=== PATIENT | male | born 1985 | race Caucasian/White ===

== ENCOUNTER 2016-10-27 18:31 | Emergency (ER) | payer BC ==
[~2016-10-27] VITALS: Ht 177.8 cm; Wt 126.8 kg
[2016-10-27 19:11] VITALS: TEMP 36.9; Ht 177.8 cm; Wt 126.8 kg
[2016-10-27] MEDS ORDERED: SEPTRA DS HOME PACK 1 EA VIAL PO ONE (19:30)
[2016-10-27] MEDS ORDERED: SULFAMETHOXAZOLE/TRIMETHOPRIM DS 800/160MG TAB PO ONE (20:00)
[2016-10-27] MEDS ORDERED: SULF800T23 PO (20:04)
--- NOTE | 2016-10-27 20:05 | EMERGENCY ROOM VISIT NOTE ---
ED Visit Note First contact with patient: 19:16 CHIEF COMPLAINT: Finger infection HISTORY OF PRESENT ILLNESS: This 31-year-old male patient presents to the emergency department ambulatory complaining of pain and swelling of the thumb. The patient does not recall any injury to the area before it became swollen and tender. He has been trying warm soaks with no relief. The patient has not had a fever. There has been no discharge. The patient's tetanus shot is up-to- date. REVIEW OF SYSTEMS: A 6 system review of systems was completed with positives and pertinent negatives listed in the HPI. ALLERGIES: No known drug allergies MEDICATIONS: No chronic medications PMH: No significant past medical history.. SOCIAL HISTORY: The patient lives locally with family.. PHYSICAL EXAM: Vital Signs: Reviewed Nurse's notes, vital signs stable. GENERAL : This is a 31-year-old male, in no acute distress, nontoxic in appearance, well -developed, well-nourished. SKIN: There is erythema, swelling, and tenderness of the nail fold around the left thumb. There is minimal fluctuance but no drainage. There is no pus under the nail. There is no lymphangitic streaking up the hand. Capillary refill less than two seconds. MUSCULOSKELETAL: The patient has full range of motion and strength of the thumb. Peripheral pulses 2 +. ED COURSE: I examined the patient. Verbal consent was obtained to perform the procedure. The area of fluctuance of the thumb with cleaned with Betadine. Ethyl chloride was used to anesthetize the area. An 11 blade was then used to make a 0.5 cm incision to drain the paronychia. A small amount of white pus was expressed. More was expressed with pressure until all of the pus was relieved. The area was thoroughly cleaned with sterile saline. The area was then dressed with bacitracin and a bandage. The patient tolerated the procedure well. He will be placed on Bactrim. The patient was discharged home in stable condition. DIAGNOSIS: Paronychia of the left thumb Current/Historical Medications No Active Prescriptions or Reported Meds Allergies Coded Allergies: No Known Allergies (Verified , 04/03/16) Vital Signs Date Time Temp Pulse Resp B/P Pulse Ox O2 Delivery O2 Flow Rate FiO2 10/27/16 19:11 36.9 76 16 166/114 95 Room Air Departure Information Impression Primary Impression: Paronychia Dispostion Home / Self-Care Condition GOOD Prescriptions Sulfa/Trimethoprim (Bactrim Ds 800MG/160MG) Tab 1 TAB PO BID for 6 Days, #12 TAB Prov: Raya Morgan ., LARRY 10/27/16 Referrals No Doctor, Assigned (PCP) Patient Instructions My [facility] [employer] [place] Additional Instructions Continue warm soaks for the finger. For pain control, you can use the following [id number] medicines (if >12 yo): - Regular strength (325mg/tab) Tylenol (acetaminophen) 2 tabs every 4-6 hours as needed. Do not exceed 12 tablets in a 24 hour period. Avoid taking more than 4 grams (4000 mg) of Tylenol per day. This includes any other sources of acetaminophen you may take on a regular basis. - Regular strength (200 mg/tab) Advil (ibuprofen) 1-2 tabs every 4-6 hours as needed. Do not exceed a dose of 3200 mg per day. You were prescribed Bactrim to be taken twice daily as prescribed. This is an antibiotic. All antibiotics have the potential to cause diarrhea. Stop this medication and contact a medical provider if you were to develop any significant adverse side effects including: wheezing, shortness of breath, passing out, vomiting, or a diffuse rash. Always take antibiotics as directed and COMPLETE the ENTIRE course regardless of the improvement of your symptoms. Return with worsening swelling, increasing redness, fevers or any other new/ concerning symptoms. Problem Qualifiers Primary Impression: Paronychia Laterality: left Qualified Codes: L03.012 - Cellulitis of left finger
[2016-10-27 21:02] VITALS: BP 143/108; PULSE 94; O2SAT 97
== END 2016-10-27 21:03 | disposition home or self-care (01) ==
LOC: C.EDB 18:32 → C.EDD 21:03
DX: L03.012 Cellulitis of left finger (principal)